=== PATIENT | female | born 1935 | race Caucasian/White ===

== ENCOUNTER 2017-06-01 18:01 | Inpatient (IN) | payer OTHER ==
[2017-06-01] MEDS: SOD CHLORIDE 0.9% 1,000 ML IV (18:31)
[2017-06-01] MEDS ORDERED: NORepinephrine 8MG/250 ML (PMX 250 ML (18:41)
[2017-06-01 18:54] LABS: ABNORMAL IP MESSAGE 1; HEMATOCRIT 30.4 % (37.0-47.0); HEMOGLOBIN 9.6 g/dl (12.0-16.0); MEAN CORPUSCULAR HEMOGLOBIN 30.9 pg (29.0-33.0); MEAN CORPUSCULAR HGB CONC 31.6 g/dl (32.0-37.0); MEAN CORPUSCULAR VOLUME 97.7 fl (82.0-101.0); MEAN PLATELET VOLUME 10.6 fl (7.4-10.4); NUCLEATED RED BLOOD CELLS% 0.3 /100WBC (0.0-0.0); PLATELET COUNT 242 10^3/UL (140-415); RED BLOOD COUNT 3.11 10^6/ul (4.20-5.40); RED CELL DISTRIBUTION WIDTH 14.6 % (11.5-14.5)
[2017-06-01 18:54] LABS: WHITE BLOOD COUNT 18.9 10^3/ul (4.8-10.8)
[2017-06-01 18:57] LABS: ADD MAN DIFF? YES; POSITIVE DIFF @See below
[2017-06-01] MEDS ORDERED: PHENYLephrine 20MG IN 250 ML 250 ML IV (19:00)
[2017-06-01] MEDS: PHENYLephrine 20MG IN 250 ML 250 ML IV ×3 (19:11→22:31)
[2017-06-01] MEDS: NORepinephrine 8MG/250 ML (PMX 250 ML IV ×2 (19:12→23:32)
[2017-06-01 19:14] LABS: INR 1.84; PROTIME 21.7 Sec (11.9-14.9); PT RATIO 1.7
[2017-06-01 19:18] LABS: PARTIAL THROMBOPLASTIN TIME 78.8 Sec (25.0-35.0)
[2017-06-01 19:19] LABS: ALBUMIN 2.7 g/dl (3.3-4.9); ALBUMIN/GLOBULIN RATIO 0.67; ALKALINE PHOSPHATASE 236 IU/L (42-121); ANION GAP 29 (8-16); BLOOD UREA NITROGEN 23 mg/dl (7-20); CALCIUM 7.7 mg/dl (8.4-10.2); CARBON DIOXIDE 12 mmol/L (21-31); CHLORIDE 106 mmol/L (97-110); CREATININE 0.73 mg/dl (0.44-1.00); GLUCOSE 179 mg/dl (70-220); POTASSIUM 5.2 mmol/L (3.5-5.1); SODIUM 142 mmol/L (135-144); TOTAL PROTEIN 6.7 g/dl (6.1-8.1)
[2017-06-01 19:23] LABS: AADO2 Arterial 199.4 mmHg (7.0-24.0); Arterial Base Excess -16.6 mmol/L (-3.0-3); Arterial Blood Gas Oxygen Sat 99.7 mmHG (95.0-100.0); Arterial COHb 0 % (0.0-3.0); Arterial Fraction of Oxyhgb 99.3 % (93.0-99.0); Arterial HCO3 12.8 mmol/L (22.0-26.0); Arterial MetHb 0.4 % (0.0-1.5); Arterial Total Hemglobin 11.9 g/dl (12.0-18.0); Blood Gas Low PEEP Setting 0 cmH2O; MODE VENT - AC; Site Right Brachial
[2017-06-01 19:25] LABS: BAND NEUTROPHILS #M 1.1 10^3/ul (0.0-0.6); BAND NEUTROPHILS % (M) 6 % (0-4); EOSINOPHILS % (M) 1 % (0-7); LYMPHOCYTES #M 9.6 10^3/ul (0.8-2.9); LYMPHOCYTES % (M) 51 % (15-51); MONOCYTE #M 0.9 10^3/ul (0.3-0.9); MONOCYTES % (M) 5 % (0-11); MYELOCYTES #M 0.9 10^3/ul (0.0-0.0); MYELOCYTES % (M) 5 % (0-0); PLATELET ESTIMATE NORMAL; REACTIVE LYMPHOCYTES #M 0.3 10^3/ul (0.0-0.0); REACTIVE LYMPHOCYTES% (M) 2 % (0-0); SEG NEUT #M 5.9 10^3/ul (1.6-7.5); SEGMENTED NEUTROPHILS (M) % 30 % (39-77); SMUDGE%M 17 % (0-0)
[2017-06-01 19:26] LABS: LACTIC ACID 14.6 mmol/L (0.5-2.0)
[2017-06-01 19:46] LABS: ASPARTATE AMINO TRANSFERASE 4959 IU/L (15-46); TROPONIN-I 0.225 ng/ml (0.00-0.12)
[2017-06-01] MEDS: SOD CHLORIDE 0.9% 1,400 ML IV (20:04)
[2017-06-01] MEDS: PIPER-TAZO 3.375 GM IV (PMX) 100 ML IVPB (20:05)
[2017-06-01 20:08] LABS: ALANINE AMINOTRANSFERASE 3578 IU/L (13-69)
[2017-06-01 20:14] LABS: URINE BLOOD (Dip) POC 3+ (NEGATIVE); URINE KETONES (Dip) POC Negative (NEGATIVE); URINE LEUKOCYTE EST (Dip) POC 3+ (NEGATIVE); URINE NITRITE (Dip) POC Negative (NEGATIVE); URINE TOTAL PROTEIN POC 3+ (NEGATIVE)
[2017-06-01] MEDS: VECURONIUM 10 MG VIAL IV (20:30)
[2017-06-01] MEDS: FENTAnyl 50 MCG/ML VIAL IV (20:30)
[2017-06-01] MEDS: VANCOMYCIN 1 GM (PMX) 250 ML IVPB (20:36)
[2017-06-01 20:37] LABS: ADD UMIC YES; UR ASCORBIC ACID 20 mg/dL (NEGATIVE); UR BACTERIA FEW /HPF (NONE SEEN); UR BILIRUBIN (Dip) NEGATIVE (NEGATIVE); UR BLOOD (Dip) 2+ mg/dL (NEGATIVE); UR CLARITY TURBID (CLEAR); UR COLOR YELLOW (YELLOW); UR GLUCOSE (Dip) 3+ mg/dL (NEGATIVE); UR KETONES (Dip) NEGATIVE (NEGATIVE); UR LEUKOCYTE ESTERASE (Dip) 3+ Leu/ul (NEGATIVE); UR MUCUS FEW /HPF (NONE SEEN); UR NITRITE (Dip) NEGATIVE (NEGATIVE); UR NONSQUAMOUS EPITHELIAL CELL 2 /HPF (NONE SEEN); UR RBC 124 /HPF (0-5); UR SPECIFIC GRAVITY (Dip) 1.007 (1.003-1.030); UR SQUAMOUS EPITHELIAL CELL FEW /HPF (FEW); UR TOTAL PROTEIN (Dip) 2+ mg/dl (NEGATIVE); UR UROBILINOGEN (Dip) NEGATIVE (NEGATIVE); UR WBC > 182 /HPF (0-5)
[2017-06-01] MEDS ORDERED: LORAZEPAM 2 MG INJ IV (21:00)
[2017-06-01] MEDS ORDERED: ACETAMINOPHEN 650MG/20.3ML CUP PO (21:00)
[2017-06-01] MEDS ORDERED: ALBUTEROL HFA 8 GM INHALER INH (21:00)
[2017-06-01] MEDS: OCULAR LUBRICANT 3.5 GM OPH OINT BOTH EYES (21:00)
[2017-06-01] MEDS: VECURONIUM 100 MG in DEXTROSE 5% 100 ML IV (21:43)
[2017-06-01 22:30] LABS: LACTIC ACID 10.7 mmol/L (0.5-2.0)
[2017-06-01] MEDS ORDERED: ZOLPIDEM 5 MG TAB PO (23:00)
[2017-06-01] MEDS: CEFTRIAXONE 1 GM/50 ML (PMX) 50 ML IVPB (23:06)
[2017-06-02] MEDS: METOPROLOL 5 MG INJ IV
[2017-06-02] MEDS: VASOPRESSIN 60 UNIT in DEXTROSE 5% 57 ML IV ×3 (00:48→23:30)
[2017-06-02 00:58] LABS: AADO2 Arterial 85.3 mmHg (7.0-24.0); Allen Test ACCEPTAB; Arterial Base Excess -14.4 mmol/L (-3.0-3); Arterial COHb 0.3 % (0.0-3.0); Arterial Fraction of Oxyhgb 98.4 % (93.0-99.0); Arterial MetHb 0.3 % (0.0-1.5); Arterial Total Hemglobin 12.4 g/dl (12.0-18.0); Arterial pCO2 26.2 mmhg (35-45); Blood Gas Low PEEP Setting 0 cmH2O; MODE VENT - AC; Site Right Radial; Temperature 33.8 C
[2017-06-02] MEDS: SOD CHLORIDE 0.9% 1,000 ML IV ×4 (00:59→22:01)
[2017-06-02 01:18] LABS: CREATINE KINASE 1564 IU/L (23-200)
[2017-06-02 01:22] LABS: LACTIC ACID 10.6 mmol/L (0.5-2.0)
[2017-06-02 01:31] LABS: CK INDEX 5.1
[2017-06-02] MEDS: PHENYLephrine 20MG IN 250 ML 250 ML IV ×4 (01:43→07:47)
[2017-06-02] MEDS: VECURONIUM 100 MG in DEXTROSE 5% 100 ML IV (01:56)
[2017-06-02] MEDS ORDERED: DEXTROSE 50% 50 ML SYRINGE IV ×2 (02:00)
[2017-06-02] MEDS: ACCU-CHEK XX ×22 (02:14→23:37)
[2017-06-02] MEDS: INSULIN HUMAN REGULAR 100 UNIT in SOD CHLORIDE 0.9% 99 ML IV ×3 (02:16→14:18)
[2017-06-02] MEDS ORDERED: HEPARIN 1000 UNITS/ML 10 ML INJ IV (03:30)
[2017-06-02] MEDS: HEPARIN 1000 UNITS/ML 10 ML INJ IV (04:05)
[2017-06-02] MEDS: HEPARIN 25000 UNITS/250 ML 250 ML IV (04:10)
[2017-06-02 04:14] LABS: ABNORMAL IP MESSAGE 1; HEMATOCRIT 34.8 % (37.0-47.0); HEMOGLOBIN 11.2 g/dl (12.0-16.0); MEAN CORPUSCULAR HEMOGLOBIN 30.6 pg (29.0-33.0); MEAN CORPUSCULAR HGB CONC 32.2 g/dl (32.0-37.0); MEAN CORPUSCULAR VOLUME 95.1 fl (82.0-101.0); NUCLEATED RED BLOOD CELLS% 0.1 /100WBC (0.0-0.0); PLATELET COUNT 317 10^3/UL (140-415); RED BLOOD COUNT 3.66 10^6/ul (4.20-5.40); RED CELL DISTRIBUTION WIDTH 14.9 % (11.5-14.5)
[2017-06-02 04:14] LABS: WHITE BLOOD COUNT 25.3 10^3/ul (4.8-10.8)
[2017-06-02 04:18] LABS: INR 2.83; PT RATIO 2.4
[2017-06-02 04:30] LABS: ADD MAN DIFF? YES; POSITIVE DIFF @See below
[2017-06-02 05:19] LABS: BAND NEUTROPHILS #M 5.3 10^3/ul (0.0-0.6); BAND NEUTROPHILS % (M) 21 % (0-4); EOSINOPHILS % (M) 2 % (0-7); GIANT THROMBO% (M) 1 % (0-0); LYMPHOCYTES #M 2.2 10^3/ul (0.8-2.9); LYMPHOCYTES % (M) 9 % (15-51); MONOCYTE #M 1.2 10^3/ul (0.3-0.9); MONOCYTES % (M) 5 % (0-11); MYELOCYTES #M 0.2 10^3/ul (0.0-0.0); MYELOCYTES % (M) 1 % (0-0); PLATELET ESTIMATE NORMAL; PROMYELOCYTES #M 0.2 10^3/ul (0-0); PROMYELOCYTES % (M) 1 % (0-0); REACTIVE LYMPHOCYTES #M 0.2 10^3/ul (0.0-0.0); REACTIVE LYMPHOCYTES% (M) 1 % (0-0); SEG NEUT #M 16.5 10^3/ul (1.6-7.5); SEGMENTED NEUTROPHILS (M) % 60 % (39-77)
[2017-06-02 05:36] LABS: PROTIME 30.6 Sec (11.9-14.9)
[2017-06-02 05:37] LABS: D-DIMER > 10000.00 ng/ml (<460)
[2017-06-02] MEDS: NORepinephrine 8MG/250 ML (PMX 250 ML IV (05:44)
[2017-06-02 05:49] LABS: ALBUMIN 3.1 g/dl (3.3-4.9); ALBUMIN/GLOBULIN RATIO 0.72; ALKALINE PHOSPHATASE 385 IU/L (42-121); AMYLASE 206 U/L (11-123); ANION GAP 29 (8-16); BLOOD UREA NITROGEN 31 mg/dl (7-20); CALCIUM 7.2 mg/dl (8.4-10.2); CARBON DIOXIDE 13 mmol/L (21-31); CHLORIDE 107 mmol/L (97-110); CREATININE 0.84 mg/dl (0.44-1.00); GLUCOSE 238 mg/dl (70-220); LIPASE 198 U/L (23-300); PHOSPHORUS 9.2 mg/dl (2.5-4.9); POTASSIUM 5.3 mmol/L (3.5-5.1); SODIUM 144 mmol/L (135-144); TOTAL PROTEIN 7.4 g/dl (6.1-8.1)
[2017-06-02] MEDS: PANTOPRAZOLE 40 MG INJ IV (06:03)
[2017-06-02 06:04] LABS: HEMATOCRIT 34.8 % (37.0-47.0); HEMOGLOBIN 11.3 g/dl (12.0-16.0); MEAN CORPUSCULAR HEMOGLOBIN 30.8 pg (29.0-33.0); MEAN CORPUSCULAR HGB CONC 32.5 g/dl (32.0-37.0); MEAN CORPUSCULAR VOLUME 94.8 fl (82.0-101.0); MEAN PLATELET VOLUME 10.3 fl (7.4-10.4); NUCLEATED RED BLOOD CELLS% 0.1 /100WBC (0.0-0.0); PLATELET COUNT 294 10^3/UL (140-415); RED BLOOD COUNT 3.67 10^6/ul (4.20-5.40); RED CELL DISTRIBUTION WIDTH 14.8 % (11.5-14.5)
[2017-06-02 06:13] LABS: ALANINE AMINOTRANSFERASE 5045 IU/L (13-69); ASPARTATE AMINO TRANSFERASE 7159 IU/L (15-46)
[2017-06-02 06:25] LABS: POSITIVE DIFF @See below
[2017-06-02 06:26] LABS: ADD MAN DIFF? YES
[2017-06-02 06:26] LABS: LACTIC ACID 10.6 mmol/L (0.5-2.0)
[2017-06-02 06:31] LABS: PARTIAL THROMBOPLASTIN TIME 84.7 Sec (25.0-35.0)
[2017-06-02 07:24] LABS: D-DIMER > 10000.00 ng/ml (<460)
[2017-06-02 07:44] LABS: AADO2 Arterial 119.4 mmHg (7.0-24.0); Allen Test ACCEPTAB; Arterial Base Excess -16.4 mmol/L (-3.0-3); Arterial Blood Gas Oxygen Sat 94.8 mmHG (95.0-100.0); Arterial COHb 0.3 % (0.0-3.0); Arterial Fraction of Oxyhgb 94.4 % (93.0-99.0); Arterial HCO3 10.4 mmol/L (22.0-26.0); Arterial MetHb 0.1 % (0.0-1.5); Arterial Total Hemglobin 11.3 g/dl (12.0-18.0); Arterial pCO2 23.9 mmhg (35-45); Blood Gas Low PEEP Setting 0 cmH2O; MODE VENT - AC; Site Right Radial; Temperature 33.2 C
[2017-06-02] MEDS ORDERED: PROPOFOL 100 ML (07:54)
[2017-06-02] MEDS: PROPOFOL 100 ML IV (07:57)
[2017-06-02 07:59] LABS: ALBUMIN 2.8 g/dl (3.3-4.9); ALBUMIN/GLOBULIN RATIO 0.65; ALKALINE PHOSPHATASE 366 IU/L (42-121); AMYLASE 216 U/L (11-123); ANION GAP 29 (8-16); BLOOD UREA NITROGEN 36 mg/dl (7-20); CALCIUM 7.1 mg/dl (8.4-10.2); CARBON DIOXIDE 12 mmol/L (21-31); CHLORIDE 110 mmol/L (97-110); CREATININE 1.01 mg/dl (0.44-1.00); GLUCOSE 250 mg/dl (70-220); LIPASE 171 U/L (23-300); POTASSIUM 4.8 mmol/L (3.5-5.1); SODIUM 146 mmol/L (135-144); TOTAL PROTEIN 7.1 g/dl (6.1-8.1)
[2017-06-02 08:23] LABS: ASPARTATE AMINO TRANSFERASE 7260 IU/L (15-46)
[2017-06-02] MEDS: PIPER-TAZO 3.375 GM IV (PMX) 100 ML IVPB ×4 (08:41→23:53)
[2017-06-02] MEDS: NA BICARBONATE 8.4% 50 ML SYG IV (08:41)
[2017-06-02] MEDS: MIDAZOLAM (DRIP) 50 mg/50 mL 50 ML IV (09:01)
[2017-06-02 09:25] LABS: ALANINE AMINOTRANSFERASE > 10000 IU/L (13-69)
[2017-06-02 09:26] LABS: ANISOCYTOSIS 1+ (0-0); BAND NEUTROPHILS #M 5.7 10^3/ul (0.0-0.6); BAND NEUTROPHILS % (M) 34 % (0-4); LYMPHOCYTES #M 0.5 10^3/ul (0.8-2.9); LYMPHOCYTES % (M) 3 % (15-51); MICROCYTOSIS 1+ (0-0); PLATELET ESTIMATE NORMAL; POIKILOCYTOSIS 3+ (0-0); POLYCHROMASIA 3+ (0-0); SEG NEUT #M 11.7 10^3/ul (1.6-7.5); SEGMENTED NEUTROPHILS (M) % 63 % (39-77); SMUDGE%M 2 % (0-0)
[2017-06-02] MEDS: SODIUM BICARBONATE (IV ADD) 75 MEQ in SOD CHLORIDE 0.45% 1,000 ML IV (09:38)
[2017-06-02] MEDS: PHENYLephrine 40 MG in DEXTROSE 5% 496 ML IV ×2 (09:44→15:19)
[2017-06-02 11:31] LABS: ADD MAN DIFF? NO
[2017-06-02 11:34] LABS: ABNORMAL IP MESSAGE 1; BASOPHILS % 0.1 % (0.0-2.0); HEMATOCRIT 32.1 % (37.0-47.0); HEMOGLOBIN 10.6 g/dl (12.0-16.0); LYMPHOCYTES # 0.6 10^3/ul (0.8-2.9); LYMPHOCYTES % 3.3 % (15.0-51.0); MEAN CORPUSCULAR HEMOGLOBIN 30.4 pg (29.0-33.0); MEAN PLATELET VOLUME 10.4 fl (7.4-10.4); MONOCYTE # 0.5 10^3/ul (0.3-0.9); MONOCYTES % 2.6 % (0.0-11.0); NEUTROPHIL # 16.6 10^3/ul (1.6-7.5); PLATELET COUNT 218 10^3/UL (140-415); RED BLOOD COUNT 3.49 10^6/ul (4.20-5.40)
[2017-06-02 11:34] LABS: WHITE BLOOD COUNT 17.8 10^3/ul (4.8-10.8)
[2017-06-02 11:39] LABS: NEUTROPHILS % 93.6 % (39.0-77.0); POSITIVE DIFF @See below
[2017-06-02 11:44] LABS: CK INDEX 3.1; CREATINE KINASE 3060 IU/L (23-200)
[2017-06-02 11:58] LABS: ALBUMIN 2.4 g/dl (3.3-4.9); ALKALINE PHOSPHATASE 274 IU/L (42-121); AMYLASE 183 U/L (11-123); ANION GAP 21 (8-16); BLOOD UREA NITROGEN 41 mg/dl (7-20); CALCIUM 6.5 mg/dl (8.4-10.2); CARBON DIOXIDE 17 mmol/L (21-31); CHLORIDE 107 mmol/L (97-110); CREATININE 1.03 mg/dl (0.44-1.00); GLUCOSE 244 mg/dl (70-220); LIPASE 128 U/L (23-300); POTASSIUM 3.6 mmol/L (3.5-5.1); SODIUM 141 mmol/L (135-144); TOTAL PROTEIN 6.4 g/dl (6.1-8.1)
[2017-06-02 12:20] LABS: CK INDEX 3.7; CREATINE KINASE 2410 IU/L (23-200)
[2017-06-02 12:26] LABS: PARTIAL THROMBOPLASTIN TIME 45.1 Sec (25.0-35.0)
[2017-06-02 12:35] LABS: SODIUM,URINE RANDOM 134 mmol/L (30-90)
[2017-06-02] MEDS: OCULAR LUBRICANT 3.5 GM OPH OINT BOTH EYES ×3 (12:36→23:54)
[2017-06-02] MEDS: ARTIFICIAL TEARS 15 ML OPH BOTH EYES ×2 (12:36→17:17)
[2017-06-02 12:40] LABS: ADD UMIC YES; UR AMORPHOUS CRYSTAL FEW /HPF (NONE SEEN); UR ASCORBIC ACID NEGATIVE (NEGATIVE); UR BACTERIA FEW /HPF (NONE SEEN); UR BILIRUBIN (Dip) NEGATIVE (NEGATIVE); UR BLOOD (Dip) 3+ mg/dL (NEGATIVE); UR CLARITY CLOUDY (CLEAR); UR COLOR YELLOW (YELLOW); UR GLUCOSE (Dip) 3+ mg/dL (NEGATIVE); UR KETONES (Dip) NEGATIVE (NEGATIVE); UR LEUKOCYTE ESTERASE (Dip) 3+ Leu/ul (NEGATIVE); UR MUCUS FEW /HPF (NONE SEEN); UR NITRITE (Dip) NEGATIVE (NEGATIVE); UR NONSQUAMOUS EPITHELIAL CELL 4 /HPF (NONE SEEN); UR RBC 94 /HPF (0-5); UR SPECIFIC GRAVITY (Dip) 1.005 (1.003-1.030); UR TOTAL PROTEIN (Dip) 1+ mg/dl (NEGATIVE); UR UROBILINOGEN (Dip) NEGATIVE (NEGATIVE); UR WBC > 182 /HPF (0-5)
[2017-06-02 12:51] LABS: LACTIC ACID 8.9 mmol/L (0.5-2.0)
[2017-06-02 12:53] LABS: CREATININE,URINE RANDOM < 12.40 mg/dl (20-320)
[2017-06-02 12:59] LABS: ASPARTATE AMINO TRANSFERASE 5681 IU/L (15-46)
[2017-06-02 13:00] LABS: ALANINE AMINOTRANSFERASE > 10000 IU/L (13-69)
[2017-06-02 13:01] LABS: Allen Test ACCEPTAB; Arterial Base Excess -9.6 mmol/L (-3.0-3); Arterial Blood Gas Oxygen Sat 94.9 mmHG (95.0-100.0); Arterial COHb 0.2 % (0.0-3.0); Arterial Fraction of Oxyhgb 94.5 % (93.0-99.0); Arterial MetHb 0.2 % (0.0-1.5); Arterial Total Hemglobin 12.6 g/dl (12.0-18.0); Arterial pCO2 28.5 mmhg (35-45); Blood Gas Low PEEP Setting 0 cmH2O; MODE VENT - AC; Site Right Radial; Temperature 32.8 C
[2017-06-02] MEDS: ASPIRIN 300 MG SUPP PR (13:10)
[2017-06-02 13:18] LABS: D-DIMER > 10000.00 ng/ml (<460)
[2017-06-02] MEDS ORDERED: PIPER-TAZO 3.375 GM IV (PMX) 100 ML IVPB (14:00)
[2017-06-02 17:47] LABS: WHITE BLOOD COUNT 18.1 10^3/ul (4.8-10.8)
[2017-06-02 17:47] LABS: ABNORMAL IP MESSAGE 1; MEAN CORPUSCULAR HEMOGLOBIN 30.3 pg (29.0-33.0); MEAN CORPUSCULAR HGB CONC 33.3 g/dl (32.0-37.0); MEAN CORPUSCULAR VOLUME 90.9 fl (82.0-101.0); MEAN PLATELET VOLUME 10.1 fl (7.4-10.4); PLATELET COUNT 198 10^3/UL (140-415); RED BLOOD COUNT 3.63 10^6/ul (4.20-5.40); RED CELL DISTRIBUTION WIDTH 14.8 % (11.5-14.5)
[2017-06-02 18:01] LABS: ADD MAN DIFF? YES; POSITIVE DIFF @See below
[2017-06-02 18:19] LABS: ALBUMIN 2.5 g/dl (3.3-4.9); ALBUMIN/GLOBULIN RATIO 0.58; ALKALINE PHOSPHATASE 251 IU/L (42-121); AMYLASE 166 U/L (11-123); ANION GAP 22 (8-16); BLOOD UREA NITROGEN 45 mg/dl (7-20); CALCIUM 6.6 mg/dl (8.4-10.2); CARBON DIOXIDE 17 mmol/L (21-31); CHLORIDE 104 mmol/L (97-110); CREATININE 1.15 mg/dl (0.44-1.00); GLUCOSE 147 mg/dl (70-220); LIPASE 158 U/L (23-300); POTASSIUM 3.8 mmol/L (3.5-5.1); SODIUM 139 mmol/L (135-144); TOTAL PROTEIN 6.8 g/dl (6.1-8.1)
[2017-06-02 18:23] LABS: LACTIC ACID 6.4 mmol/L (0.5-2.0)
[2017-06-02 18:34] LABS: AADO2 Arterial 223.5 mmHg (7.0-24.0); Allen Test ACCEPTAB; Arterial Base Excess -9.6 mmol/L (-3.0-3); Arterial Blood Gas Oxygen Sat 98.1 mmHG (95.0-100.0); Arterial COHb 0.3 % (0.0-3.0); Arterial Fraction of Oxyhgb 97.5 % (93.0-99.0); Arterial HCO3 15.7 mmol/L (22.0-26.0); Arterial MetHb 0.3 % (0.0-1.5); Arterial pCO2 27.2 mmhg (35-45); Blood Gas High PEEP Setting 0 cmH2O; MODE VENT - AC; Site Right Brachial
[2017-06-02 18:43] LABS: D-DIMER > 10000.00 ng/ml (<460)
[2017-06-02 18:55] LABS: CK INDEX 3.7; CREATINE KINASE 2434 IU/L (23-200)
[2017-06-02 19:24] LABS: ALANINE AMINOTRANSFERASE > 10000 IU/L (13-69); ASPARTATE AMINO TRANSFERASE 5371 IU/L (15-46)
[2017-06-02 20:18] LABS: BAND NEUTROPHILS #M 7.4 10^3/ul (0.0-0.6); BAND NEUTROPHILS % (M) 41 % (0-4); BURR CELLS 2+ (0-0); LYMPHOCYTES #M 0.7 10^3/ul (0.8-2.9); LYMPHOCYTES % (M) 4 % (15-51); METAMYELOCYTES #M 0.1 10^3/ul (0.0-0.0); METAMYELOCYTES %M 1 % (0-0); MONOCYTE #M 0.5 10^3/ul (0.3-0.9); MONOCYTES % (M) 3 % (0-11); PLATELET ESTIMATE NORMAL; POIKILOCYTOSIS 2+ (0-0); SEG NEUT #M 10.6 10^3/ul (1.6-7.5); SEGMENTED NEUTROPHILS (M) % 51 % (39-77)
[2017-06-02 23:19] LABS: HEMATOCRIT 27.1 % (37.0-47.0); HEMOGLOBIN 9.3 g/dl (12.0-16.0); MEAN CORPUSCULAR HEMOGLOBIN 30.5 pg (29.0-33.0); MEAN CORPUSCULAR HGB CONC 34.3 g/dl (32.0-37.0); MEAN CORPUSCULAR VOLUME 88.9 fl (82.0-101.0); MEAN PLATELET VOLUME 10.1 fl (7.4-10.4); PLATELET COUNT 155 10^3/UL (140-415); RED BLOOD COUNT 3.05 10^6/ul (4.20-5.40); RED CELL DISTRIBUTION WIDTH 14.7 % (11.5-14.5)
[2017-06-02 23:19] LABS: WHITE BLOOD COUNT 16.9 10^3/ul (4.8-10.8)
[2017-06-02 23:23] LABS: POSITIVE DIFF @See below
[2017-06-02 23:25] LABS: ADD MAN DIFF? YES
[2017-06-02 23:30] LABS: AADO2 Arterial 151.7 mmHg (7.0-24.0); Allen Test ACCEPTAB; Arterial Base Excess -5.9 mmol/L (-3.0-3); Arterial Blood Gas Oxygen Sat 97.4 mmHG (95.0-100.0); Arterial COHb 0.3 % (0.0-3.0); Arterial Fraction of Oxyhgb 96.9 % (93.0-99.0); Arterial HCO3 18.4 mmol/L (22.0-26.0); Arterial MetHb 0.2 % (0.0-1.5); Arterial Total Hemglobin 14.6 g/dl (12.0-18.0); Blood Gas Low PEEP Setting 0 cmH2O; MODE VENT - AC; Site Right Radial
[2017-06-02 23:55] LABS: ALBUMIN 2.1 g/dl (3.3-4.9); ALBUMIN/GLOBULIN RATIO 0.63; ALKALINE PHOSPHATASE 182 IU/L (42-121); AMYLASE 126 U/L (11-123); ANION GAP 14 (8-16); BLOOD UREA NITROGEN 46 mg/dl (7-20); CARBON DIOXIDE 22 mmol/L (21-31); CHLORIDE 106 mmol/L (97-110); CREATININE 1.16 mg/dl (0.44-1.00); GLUCOSE 80 mg/dl (70-220); LIPASE 95 U/L (23-300); POTASSIUM 4.3 mmol/L (3.5-5.1); SODIUM 138 mmol/L (135-144); TOTAL PROTEIN 5.4 g/dl (6.1-8.1)
[2017-06-02 23:58] LABS: CALCIUM 5.8 mg/dl (8.4-10.2)
[2017-06-02 23:59] LABS: PHOSPHORUS 3.6 mg/dl (2.5-4.9)
[2017-06-02 23:59] LABS: MAGNESIUM 1.3 mg/dl (1.7-2.5)
[2017-06-03] LABS: BAND NEUTROPHILS #M 5.9 10^3/ul (0.0-0.6); BAND NEUTROPHILS % (M) 35 % (0-4); LYMPHOCYTES #M 0.8 10^3/ul (0.8-2.9); LYMPHOCYTES % (M) 5 % (15-51); MONOCYTE #M 0.1 10^3/ul (0.3-0.9); MONOCYTES % (M) 1 % (0-11); PLATELET ESTIMATE NORMAL; SEGMENTED NEUTROPHILS (M) % 59 % (39-77); SMUDGE%M 1 % (0-0)
[2017-06-03 00:01] LABS: LACTIC ACID 2.7 mmol/L (0.5-2.0)
[2017-06-03] MEDS: ACCU-CHEK XX ×24 (00:01→23:00)
[2017-06-03] MEDS: ARTIFICIAL TEARS 15 ML OPH BOTH EYES ×5 (00:01→23:22)
[2017-06-03 00:09] LABS: CREATINE KINASE 1570 IU/L (23-200)
[2017-06-03] MEDS: MIDAZOLAM (DRIP) 50 mg/50 mL 50 ML IV (00:18)
[2017-06-03 00:22] LABS: CK INDEX 4.5
[2017-06-03 00:24] LABS: ALANINE AMINOTRANSFERASE 2490 IU/L (13-69)
[2017-06-03 00:25] LABS: ASPARTATE AMINO TRANSFERASE 3395 IU/L (15-46)
[2017-06-03] MEDS ORDERED: CA GLUCONATE (50 MG/ML) IV SYG IV* (00:30)
[2017-06-03] MEDS: SODIUM BICARBONATE (IV ADD) 75 MEQ in SOD CHLORIDE 0.45% 1,000 ML IV (00:39)
[2017-06-03] MEDS: MAGNESIUM SULFATE 2 GM/50 ML 50 ML IVPB (00:52)
[2017-06-03 01:16] LABS: D-DIMER > 10000.00 ng/ml (<460)
[2017-06-03] MEDS: CALCIUM GLUCONATE 10% 2 GM in DEXTROSE 5% 100 ML IVPB (01:48)
[2017-06-03] MEDS: PHENYLephrine 40 MG in DEXTROSE 5% 496 ML IV ×3 (02:07→17:07)
[2017-06-03] MEDS: OCULAR LUBRICANT 3.5 GM OPH OINT BOTH EYES ×4 (05:21→23:22)
[2017-06-03] MEDS: PIPER-TAZO 3.375 GM IV (PMX) 100 ML IVPB ×3 (05:21→17:09)
[2017-06-03] MEDS: PANTOPRAZOLE 40 MG INJ IV (05:21)
[2017-06-03 06:08] LABS: HEMOGLOBIN 9.6 g/dl (12.0-16.0); MEAN CORPUSCULAR HEMOGLOBIN 30.5 pg (29.0-33.0); MEAN CORPUSCULAR HGB CONC 34.3 g/dl (32.0-37.0); MEAN CORPUSCULAR VOLUME 88.9 fl (82.0-101.0); MEAN PLATELET VOLUME 10.8 fl (7.4-10.4); PLATELET COUNT 174 10^3/UL (140-415); RED BLOOD COUNT 3.15 10^6/ul (4.20-5.40); RED CELL DISTRIBUTION WIDTH 14.9 % (11.5-14.5)
[2017-06-03 06:24] LABS: INR 1.77; PT RATIO 1.6
[2017-06-03 06:34] LABS: ALBUMIN 2.1 g/dl (3.3-4.9); ALKALINE PHOSPHATASE 202 IU/L (42-121); ANION GAP 19 (8-16); BILIRUBIN,INDIRECT 0.1 mg/dl (0-1.1); BILIRUBIN,TOTAL 0.1 mg/dl (0.2-1.3); BLOOD UREA NITROGEN 50 mg/dl (7-20); CALCIUM 6.5 mg/dl (8.4-10.2); CARBON DIOXIDE 19 mmol/L (21-31); CHLORIDE 103 mmol/L (97-110); CREATININE 1.28 mg/dl (0.44-1.00); GLUCOSE 152 mg/dl (70-220); MAGNESIUM 2.2 mg/dl (1.7-2.5); POTASSIUM 4.8 mmol/L (3.5-5.1); SODIUM 136 mmol/L (135-144); TOTAL PROTEIN 5.6 g/dl (6.1-8.1)
[2017-06-03 06:38] LABS: HDL CHOLESTEROL 26 mg/dl (33-92); TRIGLYCERIDES 74 mg/dl (0-149)
[2017-06-03 06:44] LABS: CHOLESTEROL < 50 mg/dl (100-200)
[2017-06-03 06:45] LABS: B-TYPE NATRIURETIC PEPTIDE 27400 PG/ML (0-450)
[2017-06-03 06:49] LABS: ALANINE AMINOTRANSFERASE 2164 IU/L (13-69)
[2017-06-03 06:52] LABS: FREE T4 (FREE THYROXINE) 2.13 ng/dl (0.85-1.93)
[2017-06-03 07:04] LABS: POSITIVE DIFF @See below
[2017-06-03 07:05] LABS: ADD MAN DIFF? YES
[2017-06-03 07:06] LABS: THYROID STIMULATING HORMONE 0.331 MIU/L (0.465-4.680)
[2017-06-03 07:13] LABS: CREATINE KINASE 1385 IU/L (23-200)
[2017-06-03 07:14] LABS: AMYLASE 114 U/L (11-123)
[2017-06-03 07:16] LABS: ASPARTATE AMINO TRANSFERASE 2770 IU/L (15-46)
[2017-06-03 07:26] LABS: CK INDEX 4.2
[2017-06-03 08:37] LABS: AADO2 Arterial 170.7 mmHg (7.0-24.0); Allen Test ACCEPTAB; Arterial Base Excess -4.4 mmol/L (-3.0-3); Arterial Blood Gas Oxygen Sat 96.2 mmHG (95.0-100.0); Arterial COHb 0.4 % (0.0-3.0); Arterial Fraction of Oxyhgb 95.6 % (93.0-99.0); Arterial HCO3 18.4 mmol/L (22.0-26.0); Arterial MetHb 0.2 % (0.0-1.5); Arterial Total Hemglobin 11.2 g/dl (12.0-18.0); Arterial pCO2 27.1 mmhg (35-45); Blood Gas Low PEEP Setting 0 cmH2O; MODE VENT - AC; Site Right Radial
[2017-06-03 08:50] LABS: ANISOCYTOSIS 1+ (0-0); BAND NEUTROPHILS #M 5.7 10^3/ul (0.0-0.6); BAND NEUTROPHILS % (M) 30 % (0-4); BASOPHIL #M 0.1 10^3/ul (0.0-0.0); BASOPHILS % (M) 1 % (0-2); BURR CELLS 3+ (0-0); LYMPHOCYTES #M 2.6 10^3/ul (0.8-2.9); LYMPHOCYTES % (M) 14 % (15-51); MICROCYTOSIS 1+ (0-0); MONOCYTE #M 0.1 10^3/ul (0.3-0.9); MONOCYTES % (M) 1 % (0-11); PLATELET ESTIMATE NORMAL; POIKILOCYTOSIS 3+ (0-0); POLYCHROMASIA 1+ (0-0); SEG NEUT #M 11.3 10^3/ul (1.6-7.5); SEGMENTED NEUTROPHILS (M) % 54 % (39-77); SMUDGE%M 2 % (0-0)
[2017-06-03] MEDS: ASPIRIN 81 MG TAB GTB (11:14)
[2017-06-03] MEDS: MUPIROCIN 2% 22 GM OINT TOP ×2 (13:27→20:23)
[2017-06-03] MEDS: VASOPRESSIN 60 UNIT in DEXTROSE 5% 57 ML IV ×2 (13:35→23:17)
[2017-06-03 13:37] LABS: CREATININE, RANDOM URINE 4 mg/dL (20-320); MICROALBUMIN 8.9 mg/dL; MICROALBUMIN/CREATININE RATIO 2225 (<30)
[2017-06-03] MEDS: INSULIN HUMAN REGULAR 100 UNIT in SOD CHLORIDE 0.9% 99 ML IV (16:03)
[2017-06-04] MEDS: PHENYLephrine 40 MG in DEXTROSE 5% 496 ML IV (00:20)
[2017-06-04] MEDS: PIPER-TAZO 3.375 GM IV (PMX) 100 ML IVPB ×3 (00:47→13:01)
[2017-06-04] MEDS: ACCU-CHEK XX ×19 (01:00→18:00)
[2017-06-04] MEDS: PANTOPRAZOLE 40 MG INJ IV (05:19)
[2017-06-04] MEDS: OCULAR LUBRICANT 3.5 GM OPH OINT BOTH EYES ×3 (05:20→18:19)
[2017-06-04] MEDS: ARTIFICIAL TEARS 15 ML OPH BOTH EYES ×3 (05:20→18:19)
[2017-06-04 05:29] LABS: WHITE BLOOD COUNT 13.1 10^3/ul (4.8-10.8)
[2017-06-04 05:29] LABS: HEMATOCRIT 26.2 % (37.0-47.0); MEAN CORPUSCULAR HEMOGLOBIN 30.3 pg (29.0-33.0); MEAN CORPUSCULAR HGB CONC 34.4 g/dl (32.0-37.0); MEAN CORPUSCULAR VOLUME 88.2 fl (82.0-101.0); MEAN PLATELET VOLUME 10.6 fl (7.4-10.4); PLATELET COUNT 112 10^3/UL (140-415); RED BLOOD COUNT 2.97 10^6/ul (4.20-5.40); RED CELL DISTRIBUTION WIDTH 15.1 % (11.5-14.5)
[2017-06-04 05:45] LABS: ADD MAN DIFF? YES; POSITIVE DIFF @See below
[2017-06-04 05:54] LABS: CREATINE KINASE 334 IU/L (23-200)
[2017-06-04 05:56] LABS: ALBUMIN 2.3 g/dl (3.3-4.9); ALBUMIN/GLOBULIN RATIO 0.69; ALKALINE PHOSPHATASE 264 IU/L (42-121); ANION GAP 19 (8-16); BLOOD UREA NITROGEN 56 mg/dl (7-20); CALCIUM 6.4 mg/dl (8.4-10.2); CARBON DIOXIDE 18 mmol/L (21-31); CHLORIDE 96 mmol/L (97-110); GLUCOSE 120 mg/dl (70-220); MAGNESIUM 1.9 mg/dl (1.7-2.5); POTASSIUM 4.2 mmol/L (3.5-5.1); SODIUM 129 mmol/L (135-144); TOTAL PROTEIN 5.6 g/dl (6.1-8.1)
[2017-06-04 06:08] LABS: CK INDEX 3.8
[2017-06-04 06:22] LABS: ALANINE AMINOTRANSFERASE 1444 IU/L (13-69); ASPARTATE AMINO TRANSFERASE 1056 IU/L (15-46)
[2017-06-04] MEDS: MUPIROCIN 2% 22 GM OINT TOP ×2 (08:47→20:46)
[2017-06-04 09:26] LABS: BAND NEUTROPHILS #M 2.4 10^3/ul (0.0-0.6); BAND NEUTROPHILS % (M) 19 % (0-4); ERYTHROBLAST% (NRBC) (M) 1 % (0-0); LYMPHOCYTES #M 2.4 10^3/ul (0.8-2.9); LYMPHOCYTES % (M) 19 % (15-51); MONOCYTE #M 0.5 10^3/ul (0.3-0.9); MONOCYTES % (M) 4 % (0-11); PLATELET ESTIMATE DECREASED; POIKILOCYTOSIS 2+ (0-0); SEG NEUT #M 7.9 10^3/ul (1.6-7.5); SEGMENTED NEUTROPHILS (M) % 58 % (39-77); SMUDGE%M 1 % (0-0)
[2017-06-04] MEDS ORDERED: GLUCAGON 1 MG INJ IM (09:30)
[2017-06-04] MEDS ORDERED: GLUCOSE GEL 15 GRAM TUBE BUCCAL (09:30)
[2017-06-04] MEDS ORDERED: DEXTROSE 50% 50 ML SYRINGE IV (09:30)
[2017-06-04] MEDS ORDERED: GLUCOSE GEL 15 GRAM TUBE PO ×2 (09:30)
[2017-06-04 10:20] LABS: AADO2 Arterial 105.6 mmHg (7.0-24.0); Allen Test ACCEPTAB; Arterial Base Excess -9.9 mmol/L (-3.0-3); Arterial Blood Gas Oxygen Sat 98.7 mmHG (95.0-100.0); Arterial COHb 0 % (0.0-3.0); Arterial Fraction of Oxyhgb 98.5 % (93.0-99.0); Arterial HCO3 15.3 mmol/L (22.0-26.0); Arterial MetHb 0.2 % (0.0-1.5); Arterial Total Hemglobin 10.2 g/dl (12.0-18.0); Arterial pCO2 31.1 mmhg (35-45); MODE VENT - AC; Site Right Radial
[2017-06-04 10:26] LABS: HEMOGLOBIN A1C 6.9 % (0-5.9)
[2017-06-04] MEDS: INSULIN GLARGINE [LANtus] 3 ML PEN SC (12:59)
[2017-06-04] MEDS: SOD CHLORIDE 0.9% IV ×2 (13:00)
[2017-06-04] MEDS: PHENYLEPHRINE IV (13:00)
[2017-06-04] MEDS: NOREPINEPHRINE IV (13:00)
[2017-06-04] MEDS: INSULIN ASPART [NOVOLOG] 3 ML PEN SC ×3 (13:00→20:45)
[2017-06-04] MEDS: VASOPRESSIN 60 UNIT in DEXTROSE 5% 57 ML IV ×2 (13:03→23:30)
[2017-06-04] MEDS: NA BICARBONATE 8.4% 50 ML SYG IV (18:18)
[2017-06-04] MEDS: PIPER-TAZO 2.25 GM (PMX) 50 ML IVPB (21:11)
[2017-06-05] MEDS: OCULAR LUBRICANT 3.5 GM OPH OINT BOTH EYES ×4 (00:38→17:40)
[2017-06-05] MEDS: ARTIFICIAL TEARS 15 ML OPH BOTH EYES ×4 (00:38→17:40)
[2017-06-05] MEDS: PHENYLEPHRINE IV ×6 (00:40→23:10)
[2017-06-05] MEDS: SOD CHLORIDE 0.9% IV ×9 (00:40→23:10)
[2017-06-05] MEDS: INSULIN ASPART [NOVOLOG] 3 ML PEN SC ×6 (00:52→21:00)
[2017-06-05] MEDS: NOREPINEPHRINE IV ×3 (03:55→21:41)
[2017-06-05] MEDS: PIPER-TAZO 2.25 GM (PMX) 50 ML IVPB ×3 (05:25→21:43)
[2017-06-05] MEDS: PANTOPRAZOLE 40 MG INJ IV (05:25)
[2017-06-05 05:44] LABS: ABNORMAL IP MESSAGE 1; HEMATOCRIT 22.6 % (37.0-47.0); MEAN CORPUSCULAR HEMOGLOBIN 30.4 pg (29.0-33.0); MEAN CORPUSCULAR HGB CONC 35.4 g/dl (32.0-37.0); MEAN CORPUSCULAR VOLUME 85.9 fl (82.0-101.0); MEAN PLATELET VOLUME 10.1 fl (7.4-10.4); PLATELET COUNT 79 10^3/UL (140-415); RED BLOOD COUNT 2.63 10^6/ul (4.20-5.40); RED CELL DISTRIBUTION WIDTH 14.8 % (11.5-14.5)
[2017-06-05 05:44] LABS: WHITE BLOOD COUNT 10.4 10^3/ul (4.8-10.8)
[2017-06-05 05:57] LABS: ADD MAN DIFF? YES; POSITIVE DIFF @See below
[2017-06-05 06:08] LABS: ANION GAP 21 (8-16); BLOOD UREA NITROGEN 56 mg/dl (7-20); CALCIUM 6.6 mg/dl (8.4-10.2); CARBON DIOXIDE 17 mmol/L (21-31); CHLORIDE 96 mmol/L (97-110); GLUCOSE 121 mg/dl (70-220); POTASSIUM 3.8 mmol/L (3.5-5.1); SODIUM 130 mmol/L (135-144); TOTAL PROTEIN 5.6 g/dl (6.1-8.1)
[2017-06-05 06:09] LABS: ANION GAP 19 (8-16); BLOOD UREA NITROGEN 57 mg/dl (7-20); CALCIUM 6.3 mg/dl (8.4-10.2); CARBON DIOXIDE 17 mmol/L (21-31); CHLORIDE 97 mmol/L (97-110); CREATININE 2.51 mg/dl (0.44-1.00); GLUCOSE 118 mg/dl (70-220); PHOSPHORUS 7.7 mg/dl (2.5-4.9); POTASSIUM 3.9 mmol/L (3.5-5.1); SODIUM 129 mmol/L (135-144)
[2017-06-05 07:19] LABS: ALANINE AMINOTRANSFERASE 867 IU/L (13-69); ALBUMIN 2.3 g/dl (3.3-4.9); ALBUMIN/GLOBULIN RATIO 0.69; ALKALINE PHOSPHATASE 492 IU/L (42-121); ASPARTATE AMINO TRANSFERASE 444 IU/L (15-46); CREATININE 2.75 mg/dl (0.44-1.00); MAGNESIUM 1.9 mg/dl (1.7-2.5)
[2017-06-05] MEDS: MUPIROCIN 2% 22 GM OINT TOP ×2 (08:30→21:43)
[2017-06-05] MEDS: INSULIN GLARGINE [LANtus] 3 ML PEN SC (08:30)
[2017-06-05 09:25] LABS: BAND NEUTROPHILS #M 1.3 10^3/ul (0.0-0.6); BAND NEUTROPHILS % (M) 13 % (0-4); BURR CELLS 3+ (0-0); GIANT THROMBO% (M) 2 % (0-0); LYMPHOCYTES #M 1.8 10^3/ul (0.8-2.9); LYMPHOCYTES % (M) 18 % (15-51); MONOCYTE #M 0.3 10^3/ul (0.3-0.9); MONOCYTES % (M) 3 % (0-11); PLATELET ESTIMATE DECREASED; POIKILOCYTOSIS 2+ (0-0); POLYCHROMASIA 1+ (0-0); SEGMENTED NEUTROPHILS (M) % 66 % (39-77); SMUDGE%M 1 % (0-0)
[2017-06-05] MEDS ORDERED: SODIUM BICARBONATE (IV ADD) 75 MEQ in SOD CHLORIDE 0.45% 925 ML IV (09:30)
[2017-06-05] MEDS: SODIUM BICARBONATE (IV ADD) 75 MEQ in SOD CHLORIDE 0.45% 925 ML IV ×2 (10:20→21:40)
[2017-06-05] MEDS: VASOPRESSIN 60 UNIT in DEXTROSE 5% 57 ML IV ×2 (11:30→21:43)
[2017-06-05] MEDS: DEXTROSE 50% 50 ML SYRINGE IV (21:38)
[2017-06-06] MEDS: INSULIN ASPART [NOVOLOG] 3 ML PEN SC ×2 (00:03→04:59)
[2017-06-06] MEDS: OCULAR LUBRICANT 3.5 GM OPH OINT BOTH EYES ×2 (00:03→06:01)
[2017-06-06] MEDS: ARTIFICIAL TEARS 15 ML OPH BOTH EYES ×2 (00:03→06:01)
[2017-06-06] MEDS: PHENYLEPHRINE IV ×2 (03:20→06:01)
[2017-06-06] MEDS: SOD CHLORIDE 0.9% IV ×2 (03:20→06:01)
[2017-06-06] MEDS: DEXTROSE 50% 50 ML SYRINGE IV (04:32)
[2017-06-06 05:23] LABS: ABNORMAL IP MESSAGE 1; HEMATOCRIT 22.5 % (37.0-47.0); HEMOGLOBIN 7.6 g/dl (12.0-16.0); MEAN CORPUSCULAR HEMOGLOBIN 29.6 pg (29.0-33.0); MEAN CORPUSCULAR HGB CONC 33.8 g/dl (32.0-37.0); MEAN CORPUSCULAR VOLUME 87.5 fl (82.0-101.0); NUCLEATED RED BLOOD CELLS% 0.1 /100WBC (0.0-0.0); PLATELET COUNT 90 10^3/UL (140-415); RED BLOOD COUNT 2.57 10^6/ul (4.20-5.40); RED CELL DISTRIBUTION WIDTH 15.3 % (11.5-14.5)
[2017-06-06 05:23] LABS: WHITE BLOOD COUNT 19.9 10^3/ul (4.8-10.8)
[2017-06-06 05:34] LABS: ADD MAN DIFF? YES; ANION GAP 17 (8-16); BLOOD UREA NITROGEN 52 mg/dl (7-20); CALCIUM 6.4 mg/dl (8.4-10.2); CARBON DIOXIDE 17 mmol/L (21-31); CHLORIDE 103 mmol/L (97-110); CREATININE 3.02 mg/dl (0.44-1.00); GLUCOSE 97 mg/dl (70-220); MAGNESIUM 1.7 mg/dl (1.7-2.5); PHOSPHORUS 7.9 mg/dl (2.5-4.9); POSITIVE DIFF @See below; POTASSIUM 3.7 mmol/L (3.5-5.1); SODIUM 133 mmol/L (135-144)
[2017-06-06] MEDS: PIPER-TAZO 2.25 GM (PMX) 50 ML IVPB (06:01)
[2017-06-06] MEDS: PANTOPRAZOLE 40 MG INJ IV (06:01)
[2017-06-06 10:00] LABS: ANISOCYTOSIS 1+ (0-0); BAND NEUTROPHILS #M 1.9 10^3/ul (0.0-0.6); BAND NEUTROPHILS % (M) 10 % (0-4); BURR CELLS 1+ (0-0); LYMPHOCYTES #M 1.5 10^3/ul (0.8-2.9); LYMPHOCYTES % (M) 8 % (15-51); MONOCYTE #M 0.7 10^3/ul (0.3-0.9); MONOCYTES % (M) 4 % (0-11); PLATELET ESTIMATE DECREASED; POIKILOCYTOSIS 2+ (0-0); POLYCHROMASIA 1+ (0-0); SEG NEUT #M 15.9 10^3/ul (1.6-7.5); SEGMENTED NEUTROPHILS (M) % 78 % (39-77); SMUDGE%M 3 % (0-0)
[2017-06-07 16:11] LABS: PROCALCITONIN 23.49 ng/mL (<0.10)
== END 2017-06-06 09:24 | disposition expired ==
LOC: ICU 20:47 → E/R 18:01
PROC: 5A1955Z Respiratory Ventilation, Greater than 96 Consecutive Hours (ICD-10-PCS; principal; 2017-06-01)
PROC: 06HT33Z Insertion of Infusion Device into Right Foot Vein, Percutaneous Approach (ICD-10-PCS; 2017-06-01)
DX: I21.4 Non-ST elevation (NSTEMI) myocardial infarction (principal); K72.00 Acute and subacute hepatic failure without coma; I63.511 Cerebral infarction due to unspecified occlusion or stenosis of right middle cerebral artery; A41.9 Sepsis, unspecified organism; R65.21 Severe sepsis with septic shock; N17.0 Acute kidney failure with tubular necrosis; I61.5 Nontraumatic intracerebral hemorrhage, intraventricular; G93.5 Compression of brain; G93.49 Other encephalopathy; E87.2 Acidosis; E87.1 Hypo-osmolality and hyponatremia; G93.1 Anoxic brain damage, not elsewhere classified; J96.11 Chronic respiratory failure with hypoxia; N39.0 Urinary tract infection, site not specified; Z99.11 Dependence on respirator [ventilator] status; J44.9 Chronic obstructive pulmonary disease, unspecified; I46.8 Cardiac arrest due to other underlying condition; R57.0 Cardiogenic shock; R13.10 Dysphagia, unspecified; R34 Anuria and oliguria; D64.9 Anemia, unspecified; E87.5 Hyperkalemia; E11.9 Type 2 diabetes mellitus without complications; B96.20 Unspecified Escherichia coli [E. coli] as the cause of diseases classified elsewhere; B96.4 Proteus (mirabilis) (morganii) as the cause of diseases classified elsewhere; Z93.0 Tracheostomy status; Z93.1 Gastrostomy status; Z79.4 Long term (current) use of insulin; Z66 Do not resuscitate
CPT/HCPCS: 36600; 70450; 71045; 76705; 80048; 80053; 80061; 81001; 81003; 82043; 82150; 82550; 82553; 82803; 82962; 83036; 83605; 83690; 83735; 83880; 84100; 84145; 84155; 84300; 84439; 84443; 84484; 85025; 85378; 85384; 85610; 85730; 87040; 87045; 87075; 87081; 87086; 93005; 93306; 94002; 94003; 96374; 96375; 96376; 99291-25